=== PATIENT | male | born 1955 | race Caucasian/White ===

== ENCOUNTER 2018-09-26 06:27 | Emergency (ER) | payer MEDICAID, OTHER ==
--- NOTE | 2018-09-26 07:38 | C.PDOC ---
History Of Present Illness 63 y/o male presents to the ED for evaluation of headache since waking up this morning. He denies that this is the worst headache of life. Patient reports PMHx of hypertension and admits he has not taken blood pressure medication for 1 month. States he has been unable to get his medication due to insurance issues. Patients only complaint at present is intermittent headaches, which usually resolve after taking aspirin at home. Otherwise he denies any chest pain, SOB, dizziness, visual changes, weakness, numbness, or other complaints. He states systolic pressure was 186 at home and his headache felt worse, prompting patient to come to the ED. Time Seen by Provider: 09/26/18 07:12 Chief Complaint (Nursing): High Blood Pressure History Per: Patient History/Exam Limitations: no limitations Onset/Duration Of Symptoms: Intermittent Episodes Current Symptoms Are (Timing): Still Present Associated Symptoms: Headache Exacerbating Factor(s): Pos: Recently Missed Doses Of Medication Past Medical History Reviewed: Historical Data, Nursing Documentation, Vital Signs Vital Signs: Last Vital Signs Temp 97.5 F L 09/26/18 06:36 Pulse 74 09/26/18 07:18 Resp 17 09/26/18 07:18 BP 162/97 H 09/26/18 07:34 Pulse Ox 97 09/26/18 07:18 - Medical History PMH: HTN Family History: States: Unknown Family Hx - Social History Hx Tobacco Use: No Hx Alcohol Use: No Hx Substance Use: No - Immunization History Hx Tetanus Toxoid Vaccination: No Hx Influenza Vaccination: No Hx Pneumococcal Vaccination: No Review Of Systems Constitutional: Negative for: Fever, Chills Eyes: Negative for: Vision Change Cardiovascular: Negative for: Chest Pain, Palpitations Respiratory: Negative for: Shortness of Breath Gastrointestinal: Negative for: Nausea, Vomiting Neurological: Positive for: Headache. Negative for: Weakness, Numbness, Dizziness Physical Exam - Physical Exam Appears: Non-toxic, No Acute Distress Skin: Warm, No Rash Head: Atraumatic, Normacephalic Eye(s): bilateral: PERRL, EOMI Neck: Normal ROM, Supple Chest: Symmetrical Cardiovascular: Rhythm Regular, No Murmur Respiratory: No Rales, No Rhonchi, No Wheezing, Other (Clear to auscultation bilaterally) Gastrointestinal/Abdominal: Bowel Sounds (normoactive), Soft, No Tenderness, No Distention Extremity: Normal ROM, No Calf Tenderness, No Swelling Neurological/Psych: Oriented x3, Normal Speech, Normal Cognition, Other (No gross deficits) Gait: Steady ED Course And Treatment - Laboratory Results Result Diagrams: 09/26/18 07:37 09/26/18 07:37 ECG: Interpreted By Me, Viewed By Me ECG Rhythm: Sinus Rhythm ECG Interpretation: Normal Rate From EC O2 Sat by Pulse Oximetry: 97 (RA) Pulse Ox Interpretation: Normal Medical Decision Making Medical Decision Making: Impression: Uncontrolled hypertension Plan: EKG obtained, nsr. . Labs ordered and reviewed. Patient given 10 mg PO Vasotec, will monitor in the ED and reassess. 0842 pt resting comfortably. labs reviewed, normal kidney fcn, elevated glucose. results discussed with pt. will d/c with refill meds and pt to f/u outpt. Disposition Counseled Patient/Family Regarding: Studies Performed, Diagnosis, Need For Followup, Rx Given - Disposition Referrals: [facility] [Outside] [facility] [Outside] Disposition: HOME/ ROUTINE Disposition Time: 08:45 Condition: GOOD Prescriptions: Enalapril Maleate [Vasotec] 10 mg PO DAILY #30 tab hydroCHLOROthiazide [Microzide] 12.5 mg PO DAILY #30 cap Instructions: High Blood Pressure (DC), Hyperglycemia, Adult (DC) Forms: [facility] (Togolese), General Discharge Instructions - Clinical Impression Clinical Impression: Hypertension, Blood glucose elevated - PA / DIRT CONTRACTOR / Resident Statement MD/DO has reviewed & agrees with the documentation as recorded. - Scribe Statement The provider has reviewed the documentation as recorded by the Scribmali Jansen All medical record entries made by the Scribe were at my direction and personally dictated by me. I have reviewed the chart and agree that the record accurately reflects my personal performance of the history, physical exam, medical decision making, and the department course for this patient. I have also personally directed, reviewed, and agree with the discharge instructions and disposition.
[2018-09-26 07:41] LABS: BASO % 0.3 % (0.0-2.0); EOS # 0.1 K/uL (0.0-0.7); EOS % 0.9 % (0.0-4.0); HEMOGLOBIN 14.5 g/dL (12.0-18.0); LYMPH # 2.4 K/uL (1.0-4.3); LYMPH % 33.3 % (20.0-40.0); MEAN CELL VOLUME 85.4 fL (80.0-94.0); MEAN CORPUSCULAR HEMOGLOBIN 28.6 pg (27.0-31.0); MEAN CORPUSCULAR HGB CONC 33.5 g/dL (33.0-37.0); MEAN PLATELET VOLUME 7.9 fL (7.2-11.7); MONO # 0.7 K/uL (0.0-0.8); MONO % 9.2 % (0.0-10.0); NEUT # 4.1 K/uL (1.8-7.0); NEUT % 56.3 % (50.0-75.0); NRBC % 0.1 % (0.0-2.0); RBC 5.08 Mil/uL (4.40-5.90); RED CELL DISTRIBUTION WIDTH 14.5 % (11.5-14.5); WHITE BLOOD COUNT 7.3 K/uL (4.8-10.8)
[2018-09-26 08:06] LABS: ALB/GLOB RATIO 1.3 (1.0-2.1); ALBUMIN 4.1 g/dL (3.5-5.0); ALT/SGPT 18 U/L (21-72); AST/SGOT 22 U/L (17-59); BLOOD UREA NITROGEN 11 mg/dL (9-20); CALCIUM 8.9 mg/dl (8.6-10.4); GFR NON-AFRICAN AMERICAN > 60
[2018-09-26 08:34] VITALS: BP 151/84; PULSE 77; RESP 18; TEMP 97.8
[2018-09-26 08:45] VITALS: O2SAT 97
--- NOTE | 2018-09-28 00:07 | CARD ---
APPROVED REPORT Date of service: 09/26/2018 EKG Measurement Heart [id number] <Conclusion> Normal sinus rhythm Normal ECG
== END 2018-09-26 09:06 | disposition home or self-care (01) ==
LOC: C.ER 06:27
DX: I10 Essential (primary) hypertension (principal); R73.9 Hyperglycemia, unspecified

== ENCOUNTER 2018-11-19 05:15 | Emergency (ER) | payer MEDICAID, OTHER ==
--- NOTE | 2018-11-19 05:35 | C.PDOC ---
History Of Present Illness Patient presents to the ED c/o RUQ abdominal pain radiating to his back for the last 8-9 days. Patient also reports feeling bloated after eating. Patient denies fever, chills, nausea, vomit, diarrhea, rash, dysuria, hematuria. Time Seen by Provider: 11/19/18 05:35 Chief Complaint (Nursing): Abdominal Pain History Per: Patient History/Exam Limitations: no limitations Onset/Duration Of Symptoms: Days (8-9) Current Symptoms Are (Timing): Still Present Context: Food Location Of Pain/Discomfort: RUQ Radiation Of Pain To:: Back Quality Of Discomfort: "Pain" Associated Symptoms: denies: Nausea, Vomiting, Diarrhea, Constipation, Urinary Symptoms Recent travel outside of the [place]: No Additional History Per: Patient Past Medical History Reviewed: Historical Data, Nursing Documentation, Vital Signs Vital Signs: Last Vital Signs Temp 98.1 F 11/19/18 05:26 Pulse 86 11/19/18 05:26 Resp 20 11/19/18 05:26 BP 172/94 H 11/19/18 05:26 Pulse Ox 97 11/19/18 05:26 - Medical History PMH: HTN Surgical History: No Surg Hx Family History: States: Unknown Family Hx - Social History Hx Tobacco Use: No Hx Alcohol Use: No Hx Substance Use: No - Immunization History Hx Tetanus Toxoid Vaccination: No Hx Influenza Vaccination: No Hx Pneumococcal Vaccination: No Review Of Systems Constitutional: Negative for: Fever, Chills Cardiovascular: Negative for: Chest Pain Respiratory: Negative for: Shortness of Breath Gastrointestinal: Positive for: Abdominal Pain. Negative for: Nausea, Vomiting, Diarrhea Genitourinary: Negative for: Dysuria Musculoskeletal: Positive for: Back Pain Skin: Negative for: Rash Neurological: Negative for: Weakness, Numbness Physical Exam - Physical Exam Appears: Non-toxic, No Acute Distress Skin: Warm, Dry, No Rash Head: Normacephalic Eye(s): bilateral: Normal Inspection Oral Mucosa: Moist Neck: Supple Chest: Symmetrical Cardiovascular: Rhythm Regular Respiratory: No Rales, No Rhonchi, No Wheezing Gastrointestinal/Abdominal: Soft, Tenderness (RUQ), No Guarding, No Rebound, Other (Tympanic to percussion) Back: No CVA Tenderness Extremity: Bilateral: Atraumatic, Normal Color And Temperature, Normal ROM Neurological/Psych: Oriented x3, Normal Speech, Normal Cognition Gait: Steady ED Course And Treatment O2 Sat by Pulse Oximetry: 97 (ON RA) Pulse Ox Interpretation: Normal Progress Note: Plan: - Labs. - UA Disposition Counseled Patient/Family Regarding: Studies Performed, Diagnosis - Disposition Disposition Time: 05:35 Condition: FAIR Forms: [facility] (Luxembourgish) - Clinical Impression Clinical Impression: Abdominal pain - Scribe Statement The provider has reviewed the documentation as recorded by the Scribe Richard Skinner All medical record entries made by the Scribe were at my direction and personally dictated by me. I have reviewed the chart and agree that the record accurately reflects my personal performance of the history, physical exam, medical decision making, and the department course for this patient. I have also personally directed, reviewed, and agree with the discharge instructions and disposition. Physician Patient Turnover Patient Signed Over To: Sofia Holt Handoff Comments: pending labs, re-eval and dispo
[2018-11-19 06:36] LABS: SQUAMOUS EPITHIAL 1 /hpf (0-5); URINE BILIRUBIN 1+ (NEGATIVE); URINE BLOOD NEGATIVE (NEGATIVE); URINE CLARITY Hazy (Clear); URINE COLOR Amber (YELLOW); URINE GLUCOSE (UA) NORMAL (Normal); URINE LEUKOCYTE ESTERASE NEG Leu/uL (Negative); URINE PROTEIN 2+ mg/dL (NEGATIVE)
[2018-11-19 06:54] LABS: BASO # 0.1 K/uL (0.0-0.2); BASO % 1.3 % (0.0-2.0); EOS # 0.1 K/uL (0.0-0.7); EOS % 0.7 % (0.0-4.0); HEMOGLOBIN 15.3 g/dL (12.0-18.0); LYMPH # 2.1 K/uL (1.0-4.3); LYMPH % 22.1 % (20.0-40.0); MEAN CELL VOLUME 85.4 fL (80.0-94.0); MEAN CORPUSCULAR HEMOGLOBIN 29.1 pg (27.0-31.0); MEAN CORPUSCULAR HGB CONC 34.1 g/dL (33.0-37.0); MONO # 0.6 K/uL (0.0-0.8); MONO % 6.4 % (0.0-10.0); NEUT # 6.6 K/uL (1.8-7.0); NEUT % 69.5 % (50.0-75.0); RBC 5.25 Mil/uL (4.40-5.90); RED CELL DISTRIBUTION WIDTH 14.1 % (11.5-14.5); WHITE BLOOD COUNT 9.4 K/uL (4.8-10.8)
[2018-11-19 07:05] LABS: BLOOD UREA NITROGEN 13 mg/dL (9-20); CALCIUM 9.4 mg/dl (8.6-10.4); GFR NON-AFRICAN AMERICAN > 60; LIPASE 167 U/L (23-300)
[2018-11-19 07:19] LABS: ALB/GLOB RATIO 1.4 (1.0-2.1); ALBUMIN 4.5 g/dL (3.5-5.0); ALT/SGPT 20 U/L (21-72); AST/SGOT 45 U/L (17-59)
[2018-11-19 07:43] LABS: VENOUS BLOOD GAS PCO2 60 mmHg (40-60); VENOUS BLOOD GAS PO2 10 mm/Hg (30-55); VENOUS BLOOD PH 7.33 (7.32-7.43)
[2018-11-19] MEDS ORDERED: Sodium Chloride 0.9% 1,000 ML IV ONE (08:18)
--- NOTE | 2018-11-19 08:46 | RAD ---
Date of service: 11/19/2018 HISTORY: upper abd pain COMPARISON: Frontal chest radiograph 07/19/2011. TECHNIQUE: 1 view obtained. FINDINGS: LUNGS: No active pulmonary disease. PLEURA: No significant pleural effusion identified, no pneumothorax apparent. CARDIOVASCULAR: No aortic atherosclerotic calcification present. Normal cardiac size. No pulmonary vascular congestion. OSSEOUS STRUCTURES: No significant abnormalities. VISUALIZED UPPER ABDOMEN: Mild elevation of the right hemidiaphragm is noted. OTHER FINDINGS: None. IMPRESSION: No interval acute cardiopulmonary disease appreciated. Mild elevation of the right hemidiaphragm is appreciated nevertheless in the interval.
[2018-11-19] MEDS ORDERED: Iodixanol 320 MG/ML 100 ML BOTTLE IV ONE (10:09)
[2018-11-19 11:00] LABS: VENOUS BLOOD GAS BASE EXCESS 5.5 mmol/L (0.0-2.0); VENOUS BLOOD GAS PCO2 51 mmHg (40-60); VENOUS BLOOD GAS PO2 13 mm/Hg (30-55)
--- NOTE | 2018-11-19 11:05 | US ---
Date of service: 11/19/2018 HISTORY: RUQ PAIN, R/O CHOLECYSTITIS COMPARISON: None available TECHNIQUE: Sonographic evaluation of the right upper quadrant of the abdomen. FINDINGS: Examination limited by habitus. LIVER: Measures 16.8 cm in length. Echogenic liver may be seen in setting of hepatic parenchymal disease or fatty infiltration. No focal hepatic mass identified. The main portal vein appears patent with normal directional flow. No intrahepatic bile duct dilatation. GALLBLADDER: No gallstones. No gallbladder wall thickening or pericholecystic edema. Negative sonographic Finn's sign as assessed by the editor at large. COMMON BILE DUCT: Measures 5 mm. PANCREAS: Not well-visualized. RIGHT KIDNEY: Measures approximately 13.2 x 5.3 x 6.3 cm. No obstructing calculus or hydronephrosis identified. AORTA: Limited visualization appears grossly unremarkable. IVC: Limited visualization appears grossly unremarkable. OTHER FINDINGS: None . IMPRESSION: Limited study. Echogenic liver may be seen in setting of hepatic parenchymal disease or fatty infiltration.
--- NOTE | 2018-11-19 11:45 | US ---
Indication: Abdominal pain radiating to back Technique: Transabdominal grayscale and Doppler ultrasound imaging of the aorta. Comparison: Limited abdominal ultrasound performed the same day Findings: Markedly limited examination due to habitus. No evidence of aneurysm of the visualized abdominal aorta. No periaortic mass or fluid collection appreciated. The proximal aorta measures approximately 1.8 cm AP in the sagittal plane. The mid aorta measures approximately 2.1 cm AP in the sagittal plane. The distal aorta measures approximately 1.5 cm AP in the sagittal plane. Impression: Markedly limited study. No evidence of abdominal aortic aneurysm. Suggest cross-sectional imaging for further evaluation if indicated.
--- NOTE | 2018-11-19 12:37 | CT ---
Date of service: 11/19/2018 CT Dissection protocol Indication: UPPER ABD PAIN RADIATING TO BACK Technique: Contiguous axial images were obtained through the chest/abdomen/pelvis with intravenous contrast enhancement utilizing dissection protocol technique. Sagittal and coronal reconstructions were generated and reviewed. This CT exam was performed using 1 or more of the following dose reduction techniques: Automated exposure control, adjustment of the MAA and/or kV according to patient size, and/or use of iterative reconstruction technique. Radiation dose (DLP): 2456.62 MGy-cm. Contrast: Aorta ultrasound performed 11/19/18, abdominal limited ultrasound performed 11/19/18 Findings: Visualized portions of the inferior thyroid gland appear unremarkable. The mediastinal and hilar vascular structures appear within normal limits. The heart appears within normal limits of size. No evidence of thoracic aorta dissection or aneurysmal dilatation. No focal consolidation. No pleural effusion. No pneumothorax. No suspicious pulmonary nodules measuring greater than 5 mm. There is normal course and contour of the abdominal aorta and common iliac arteries. The celiac artery origin is widely patent. The superior mesenteric artery origin is widely patent. The inferior mesenteric artery origin is patent. Single renal arteries identified bilaterally, both widely patent. Hypoattenuation of the liver compatible with hepatic steatosis. The pancreas, spleen, adrenal glands, and gallbladder appear unremarkable. The kidneys enhance symmetrically without evidence of hydronephrosis or obstructing renal calculi. 11 mm and 14 mm left renal hypodensities appear consistent with cysts. No enlarged abdominal lymphadenopathy is identified. The stomach is nondistended. Lack of oral contrast limits evaluation for bowel pathology. Visualized bowel loops appear within normal limits of caliber without evidence of obstruction. Diverticulosis without CT evidence of acute diverticulitis. The appendix appears within normal limits. No inflammatory changes are seen in the right lower quadrant to suggest acute appendicitis. No definite free air. Mildly thick-walled urinary bladder may be exaggerated by under distension. The prostate gland measures approximately 4.9 x 5.4 cm. No significant pelvic free fluid is identified. Small bilateral fat containing inguinal hernias. Degenerative changes of the spine. Mild scoliosis. Small sclerotic foci within the L3 and L5 vertebral bodies, possibly bone islands. Impression: No evidence of abdominal or thoracic aortic dissection or aneurysm. Hypoattenuation of the liver compatible with hepatic steatosis. Left renal cysts. Diverticulosis without CT evidence of acute diverticulitis. Mildly thick-walled urinary bladder may be exaggerated by under distension. Enlarged heterogeneous prostate gland; recommend correlation with PSA. Small bilateral fat containing inguinal hernias.
[2018-11-19 13:54] VITALS: BP 127/79; PULSE 78; RESP 18; TEMP 98; O2SAT 99
== END 2018-11-19 13:55 | disposition home or self-care (01) ==
LOC: C.ER 05:15 → C.9E 10:12 → UNDOADMIN 10:12 → C.9E 10:21 → C.ER 13:55
DX: K76.0 Fatty (change of) liver, not elsewhere classified (principal); R10.11 Right upper quadrant pain
CPT/HCPCS: 71045; 71275; 74175; 76705; 76770; 80053; 81001; 82009; 82803; 83690; 85025; 96360; 99285; J7030; Q9967